=== PATIENT | female | born 1990 | race Asian ===

== ENCOUNTER 2017-04-25 09:40 | Inpatient (IN) | payer SELFPAY ==
[~2017-04-25] VITALS: Ht 167 cm; Wt 70.8 kg
[2017-04-25] MEDS ORDERED: LR 1,000 ML IV ONE ×2 (10:49→14:08)
[2017-04-25] MEDS ORDERED: METOCLOPRAMIDE HCL 10 MG/2 ML VIAL IVP ONE (11:00)
[2017-04-25] MEDS ORDERED: CEFAZOLIN 2 GM IVPB PREMIX 50 ML IV ONE ×2 (11:00→12:25)
[2017-04-25 12:13] LABS: HEMATOCRIT 37.6 % (36-48); HEMOGLOBIN 12.4 g/dL (12.0-16.0); MEAN CORPUSCULAR HEMOGLOBIN 29 pg (27-31); MEAN CORPUSCULAR HGB CONC 33 % (32-36); MEAN CORPUSCULAR VOLUME 87 fL (79.0-98.0); PLATELET COUNT (AUTO) 221 K/uL (130-430); RED BLOOD CELL COUNT(AUTO) 4.33 MIL/uL (4.2-6.2); RED CELL DISTRIBUTION WIDTH 13.3 % (9.0-15.0); WHITE BLOOD COUNT (AUTO) 10.5 K/uL (4.8-10.8)
[2017-04-25] MEDS ORDERED: MEPERIDINE HCL/PF 100 MG/ML AMP IM ONE (12:25)
[2017-04-25] MEDS ORDERED: ONDANSETRON HCL 4 MG/2 ML VIAL IVP ONE (12:25)
[2017-04-25] MEDS ORDERED: BUPIVACAINE /PF 0.75% 10 ML VIAL INJ ONE (12:25)
[2017-04-25] MEDS ORDERED: OXYTOCIN 10 UNIT/ML VIAL IV ONE (12:25)
[2017-04-25] MEDS ORDERED: fentaNYL CITRATE 250 MCG/5 ML AMP IV ONE (12:25)
[2017-04-25] MEDS ORDERED: NS IRRIG SOLN 1000 ML IR ONE (12:25)
[2017-04-25] MEDS ORDERED: MORPHINE SULFATE 10MG/10ML PF AMP EP ONE (12:25)
[2017-04-25] MEDS ORDERED: LR 1,000 ML IV.SOLN IV ONE (12:25)
[2017-04-25 12:36] LABS: ATYPICAL LYMPHOCYTES % 0 % (0-0); BAND % (MANUAL) 2 % (0-6); BASOPHILS % (MANUAL) 0 % (0-2); EOSINOPHILS % (MANUAL) 1 % (0-7); LYMPHOCYTES % (MANUAL) 20 % (20-46); MONOCYTES % (MANUAL) 4 % (0-11)
[2017-04-25] MEDS ORDERED: ONDANSETRON HCL 4 MG/2 ML VIAL IVP PRN ×2 (14:15→16:30)
[2017-04-25] MEDS ORDERED: fentaNYL CITRATE/PF 100 MCG/2 ML AMP IVP PRN (14:15)
[2017-04-25] MEDS ORDERED: MEPERIDINE HCL/PF 25 MG/ML DISP.SYRIN IVP PRN (14:15)
[2017-04-25] MEDS ORDERED: HYDROmorphone 1 MG INJ. 1 MG/ML AMPUL IVP PRN (14:15)
[2017-04-25] MEDS ORDERED: MIDAZOLAM HCL 5 MG/5 ML VIAL IVP PRN (14:15)
[2017-04-25] MEDS ORDERED: OXYTOCIN/NORMAL SALINE 1,000 ML IV ONE ×2 (14:22→15:37)
[2017-04-25] MEDS ORDERED: BISACODYL 10 MG/SUPPOSITORY RC PRN (15:45)
[2017-04-25] MEDS ORDERED: MEASLES,MUMPS&RUBELLA VACC/PF 12500 UNIT/0.5 ML VIAL SUBQ PRN (15:45)
[2017-04-25] MEDS ORDERED: ANUSOL 1 EA SUPP.RECT (PREPARATION H) RC PRN (15:45)
[2017-04-25] MEDS ORDERED: LANOLIN 7 GM OINT. TP PRN (15:45)
[2017-04-25] MEDS ORDERED: SENNOSIDES/DOCUSATE SODIUM 1 TAB TABLET(SENOKOT-S) PO PRN (15:45)
[2017-04-25] MEDS ORDERED: OXYCODONE/ACETAMINOPHEN 5-325 TABLET PO PRN (15:45)
[2017-04-25] MEDS ORDERED: DIPHENHYDRAMINE INJ 50 MG/ML VIAL IVP PRN (16:30)
[2017-04-25] MEDS ORDERED: KETOROLAC TROMETHAMINE 30 MG VIAL IVP ONE (16:30)
[2017-04-25] MEDS ORDERED: KETOROLAC TROMETHAMINE 60 MG/2 ML VIAL IM PRN (16:30)
[2017-04-25 16:59] VITALS: BP_SYST 114
[2017-04-25] MEDS: CEFAZOLIN 1 GM IVPB PREMIX 50 ML IV SCH (18:48)
[2017-04-26] MEDS: CEFAZOLIN 1 GM IVPB PREMIX 50 ML IV SCH ×2 (00:11→05:37)
[2017-04-26] MEDS: IBUPROFEN 600 MG TABLET PO SCH ×4 (05:39→23:51)
[2017-04-26 07:13] LABS: BASOPHILS % (AUTO) 0.2 % (0.0-2.0); EOSINOPHILS # (AUTO) 0.1 K/uL (0.0-0.4); EOSINOPHILS % (AUTO) 0.5 % (0.0-4.0); HEMATOCRIT 34.7 % (36-48); HEMOGLOBIN 11.4 g/dL (12.0-16.0); LYMPHOCYTES # (AUTO) 2.6 K/uL (1.0-5.5); LYMPHOCYTES % (AUTO) 16.5 % (20.5-51.5); MEAN CORPUSCULAR HEMOGLOBIN 29 pg (27-31); MEAN CORPUSCULAR HGB CONC 33 % (32-36); MEAN CORPUSCULAR VOLUME 87 fL (79.0-98.0); MONOCYTES # (AUTO) 1.2 K/uL (0.0-1.0); MONOCYTES % (AUTO) 7.9 % (1.7-9.3); NEUTROPHILS # (AUTO) 11.6 K/uL (1.8-7.7); NEUTROPHILS % (AUTO) 74.9 % (40.0-70.0); PLATELET COUNT (AUTO) 205 K/uL (130-430); RED BLOOD CELL COUNT(AUTO) 4.01 MIL/uL (4.2-6.2); RED CELL DISTRIBUTION WIDTH 13.3 % (9.0-15.0)
[2017-04-26 07:39] LABS: WHITE BLOOD COUNT (AUTO) 15.5 K/uL (4.8-10.8)
[2017-04-26] MEDS: SIMETHICONE 80 MG TAB.CHEW PO PRN ×3 (08:11→23:51)
[2017-04-26] MEDS: OXYCODONE/ACETAMINOPHEN 5-325 TABLET PO PRN ×3 (08:12→18:38)
[2017-04-26] MEDS: DOCUSATE SODIUM 100 MG CAPSULE PO PRN ×2 (08:13→23:51)
[2017-04-27] MEDS: IBUPROFEN 600 MG TABLET PO SCH ×2 (05:54→12:08)
== END 2017-04-27 15:30 | disposition home or self-care (01) | DRG 766 ==
LOC: SPU 09:40
PROVIDERS: ADMIT Obstetrics & Gynecology; ATTEND Obstetrics & Gynecology
PROC: 10D00Z1 Extraction of Products of Conception, Low, Open Approach (ICD-10-PCS; principal; 2017-04-25 12:00)
DX: O82 Encounter for cesarean delivery without indication (principal); Z37.0 Single live birth; Z3A.39 39 weeks gestation of pregnancy
CPT/HCPCS: 36415; 85007; 85025; 85027; 86886; 86900; 86901; 94760; J0690; J2175; J2274; J2405; J2590; J3010; J3490; J7120